=== PATIENT | female | born 1985 | race African-American/Black ===

== ENCOUNTER 2016-12-08 23:17 | Emergency (ER) | payer OTHER ==
[~2016-12-08 23:17] MED LIST: AMOXICILLIN500 MG PO; ANTIVERT 25MG #1 PAC PO; BACTRIM DS 8001 TAB PO; BENTYL20 M1 PO; MOTRIN 800MG T800 MG PO; ZOFRAN4 M2 SL
--- NOTE | 2016-12-08 23:55 | ED AMS/SEIZURE/WEAK/DIZZY ---
History of Present Illness General Chief Complaint: General Adult Stated Complaint: "PER PT DIZZY SPELLS" Source: patient, old records Exam Limitations: no limitations Vital Signs & Intake/Output Vital Signs & Intake/Output Vital Signs Date Time Temp Pulse Resp B/P Pulse O2 O2 Flow FiO2 Ox Delivery Rate 12/09 0118 97.0 79 18 126/76 96 12/08 2326 98.6 80 20 124/84 99 Allergies Coded Allergies: NO KNOWN ALLERGIES (07/10/16) Reconcile Medications Butalb/Acetaminophen/Caffeine (Fioricet 50-300-40 MG Capsule) 50 MG-300 MG-40 MG CAPSULE 1 TAB PO TID PRN MIGRAINE Dicyclomine HCl (Bentyl) 20 MG TABLET 1 TAB PO 4 TIMES/DAY ABDOMINAL PAIN Meclizine HCl 25 MG TABLET 1 TAB PO TIDPRN PRN VERTIGO Ondansetron HCl (Zofran) 4 MG TABLET 1 ODT SL TID PRN NAUSEA Scopolamine Hydrobromide (Transderm-Scop) 1.5MG/3DAY PATCH.TD.3 1 PAT TOP Q3D VERTIGO apply to the hairless area behind 1 ear at least 4 hours before effect is required; reapply every 3 days as needed Triage Note: PER PT DIZZY SPEELS ON AND OFF FOR FEW MONTHS. PER PT SEEN HERE 6 MONTHS AGO FOR A MISCARRIAGE NO MENSES SINCE, ONLY SPOTTING, UNKNOWN PERIOD, PER PT NODULES ON LUNGS FROM CT YESTERDAY, COUGHING Triage Nurses Notes Reviewed? yes Onset: Gradual Duration: constant Timing: recent history Severity: moderate Severity Numbers: 5 : No Patient currently breastfeeds: No HPI: Patient is a 31-year-old female with a past medical history of asthma pulmonary nodules migraine headaches and in June a miscarriage in which patient states that since the miscarriage in which she had a D&C performed by her TRANSPORTATION SECURITY SCREENER afterwards she has been complaining of intermittent vaginal spotting however no excessive vaginal bleeding has occurred. Patient also has been complaining of worsening intermittent migraine headaches and chronic photophobia and dizziness episodes. Patient denies any acute onset or thunderclap headache or worse headache of life. Patient denies any fever but does have chills chronically Denies any dysuria hematuria or vaginal discharge, nausea vomiting abdominal pain back pain chest pain and arm pain jaw pain shortness of breath hemoptysis or cough. Patient has been following her pulmonary nodules in which a CT scan was performed this week showing increased frequency of pulmonary nodules in which follow-up appointment with Dr. Harley is Friday Patient has been taking ibuprofen for her headaches patient associates his symptoms of lightheaded sensation and room spinning sensation Patient is able tolerate by mouth with no change in symptoms Patient also states that since her miscarriage she has not had a "full" REGULAR menses. (MGAAN AZAR) Past History Travel History Traveled to [place] past 21 day No Medical History Any Pertinent Medical History? 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 No (MAGAN AZAR) Review of Systems Review of Systems Constitutional: Reports: see HPI, chills. EENTM: Reports: see HPI. Denies: blurred vision. Respiratory: Denies: cough, short of breath. Cardiovascular: Reports: no symptoms. GI: Reports: see HPI. Genitourinary: Reports: see HPI. Musculoskeletal: Reports: no symptoms. Skin: Reports: no symptoms. Neurological/Psychological: Reports: see HPI, headache. Hematologic/Endocrine: Reports: no symptoms. Immunologic/Allergic: Reports: no symptoms. All Other Systems: Reviewed and Negative (MAGAN AZAR) Physical Exam Physical Exam General Appearance: no apparent distress, alert, comfortable Comments: Well-developed well-nourished person in no acute distress HEENT: Normal EENT exam, extraocular motion intact, no nystagmus. Pupils equally round and reactive to light and accommodation. Nose is atraumatic. External auditory canal and Tympanic membranes clear. Pharynx normal. No swelling or edema. Neck: Supple, no lymphadenopathy, normal range of motion without pain or tenderness Back: Nontender, no CVA tenderness. Cardiovascular: Regular rate and rhythms no murmurs rubs or gallops, normal JVP Respiratory: Chest nontender. No respiratory distress.breath sounds clear to auscultation bilaterally Abdomen: Soft, nontender nondistended, no appreciable organomegaly. Normal bowel sounds. No ascites Extremity: No edema, no calf tenderness to palpation, normal and equal pulses. Neuro: Alert oriented x3, motor sensory normal, cranial nerves II through XII grossly intact. Skin: No appreciable rash on exposed skin, skin is warm and dry. Psych: Mood and affect is normal, memory and judgment is normal. Core Measures ACS in differential dx? No CVA/TIA Diagnosis: No Severe Sepsis Present: No Septic Shock Present: No (BARI BANUELOS,MAGAN) Progress Differential Diagnosis: arrythmia, anemia, benign positional vertigo, CVA/stroke , dehydration, drug intoxication, encephalitis, electrolyte imbalance, GI bleed, hypoglycemia, hypoxia, intracranial Hem., intracranial mass/tumor, labrynthitis, meningitis, Meniere's disease, migraine [place], multiple sclerosis, pneumonia, postural hypotension, presyncope, post-traumatic vertigo, sepsis, seizure disorder, subarachnoid Hem., UTI/pyelo, vertebrobasilar insuff Plan of Care: Orders Procedure Date/time Status COMPREHENSIVE METABOLIC PANEL 12/08 235 Complete CBC WITHOUT DIFFERENTIAL 12/08 2357 Complete URINE 12/08 2326 Complete URINALYSIS 12/08 2326 Complete Laboratory Tests 12/09/16 0055: Anion Gap 10, Estimated GFR > 60, BUN/Creatinine Ratio 20.0, Glucose 96, Calcium 9.3, Total Bilirubin 0.3, AST 32, ALT 47, Alkaline Phosphatase 58, Total Protein 7.0, Albumin 3.8, Globulin 3.2, Albumin/Globulin Ratio 1.2, CBC w Diff NO MAN DIFF REQ, RBC 4.23, MCV 84.8, MCH 28.4, RDW 13.7, MPV 8.6, Gran % 66.6, Lymphocytes % 24.2, Monocytes % 5.3, Eosinophils % 2.2, Basophils % 1.7, Absolute Granulocytes 5.6, Absolute Lymphocytes 2.0, Absolute Monocytes 0.4, Absolute Eosinophils 0.2, Absolute Basophils 0.1, PUBS MCHC 33.5 12/08/16 2332: Urinalysis LIGHT H, Urine Color YEL, Urine Clarity CLEAR, Urine pH 6.5, Ur Specific [place] 1.025, Urine Protein TRACE H, Urine Ketones NEG, Urine Nitrite NEG, Urine Bilirubin NEG, Urine Urobilinogen 0.2, Ur Leukocyte Esterase NEG, Ur Microscopic SEDIMENT EXAMINED, Urine RBC 1-3, Urine WBC 1-3 H, Ur Epithelial Cells FEW, Urine Mucus FEW, Urine Hemoglobin NEG, Urine Glucose NEG, Urine Test NEGATIVE Patient currently is in no apparent distress Patient's vital signs were unremarkable patient was normotensive Patient has nontender abdomen Patient has concerns of migraine and dizziness and room spinning sensation Patient has unremarkable acute physical exam findings Patient at this time due to his her present illness and exam findings has no concerns of subarachnoid hemorrhage Discussed hand off with Dr. GUERRERO with blood work currently is pending (MAGAN AZAR) Initial ED EKG: none Hand-Off Endorsed To: RAFAEL GUERRERO MD Endorsed Time: 54 Pending: labs (MAGAN AZAR) Departure Departure Disposition: HOME OR SELF CARE Condition: Stable Clinical Impression Primary Impression: Migraine Secondary Impressions: Positional vertigo, Vaginal spotting Referrals: PATIENT HAS NO PRIMARY CARE DR (PCP/Family) Additional Instructions: As discussed continue [id number] ibuprofen for headaches and begin the prescription of Fioricet for future headache BREAKthrough relief. Begin the prescription a scopolamine patch and meclizine for room spinning sensation. Begin drinking plenty of water for hydration. Follow up this week with her OB/ FRONT END SOFTWARE DEVELOPER for your symptoms and you have been given a list of primary care doctors to call, please call on Friday to establish a doctor. If symptoms worsen return to emergency room. Departure Forms: Customer Survey General Discharge Information Prescriptions: Current Visit Scripts Butalb/Acetaminophen/Caffeine (Fioricet 50-300-40 MG Capsule) 1 TAB PO TID PRN MIGRAINE #15 Scopolamine Hydrobromide (Transderm-Scop) 1 PAT TOP Q3D #4 PAT apply to the hairless area behind 1 ear at least 4 hours before effect is required; reapply every 3 days as needed Meclizine HCl 1 TAB PO TIDPRN PRN VERTIGO #15 TAB (MAGAN AZAR) PA/MANAGER BANK Co-Sign Statement Statement: ED Attending supervision documentation- [X] I saw and evaluated the patient. I have also reviewed all the pertinent lab results and diagnostic results. I agree with the findings and the plan of care as documented in the PA's/MANAGER BANK's documentation. [X] I have reviewed the ED Record and agree with the PA's/MANAGER BANK's documentation. [] Additions or exceptions (if any) to the PAs/MANAGER BANK's note and plan are summarized below: [] (RAFAEL GUERRERO MD)
[2016-12-09] MEDS ORDERED: MECLIZINE HCL25 MG PO (00:24)
[2016-12-09] MEDS ORDERED: FIORICET 50-301 EACH PO (00:24)
[2016-12-09] MEDS ORDERED: TRANSDERM-SCOP1 EACH TOP (00:24)
[2016-12-09 01:06] LABS: ABSOLUTE BASOPHIL COUNT 0.1 /CUMM (0.0-0.2); ABSOLUTE EOSINOPHIL COUNT 0.2 /CUMM (0.0-0.7); ABSOLUTE GRANULOCYTE CT 5.6 /CUMM (1.4-6.5); ABSOLUTE MONOCYTE COUNT 0.4 /CUMM (0.10-0.60); BASOPHIL % 1.7 % (0.0-2.0); EOSINOPHIL % 2.2 % (0-5); GRANULOCYTE % 66.6 % (42.2-75.2); HEMATOCRIT 35.8 % (37-47); MEAN CORPUSCULAR HGB 28.4 PG (27.0-31.0); MEAN CORPUSCULAR HGB CONC 33.5 G/DL (33.0-37.0); MEAN CORPUSCULAR VOLUME 84.8 FL (81.0-99.0); MEAN PLATELET VOLUME 8.6 FL (7.4-10.4); PLATELET COUNT 260 /CUMM (130-400); RBC DISTRIBUTION WIDTH 13.7 % (11.5-14.5); RED BLOOD CELL CT 4.23 /CUMM (4.20-5.40); WHITE BLOOD CELL COUNT 8.4 /CUMM (4.8-10.8)
[2016-12-09 01:18] VITALS: BP 126/76
[2016-12-09] MEDS ORDERED: IBUPROFEN600 M1 PO (01:51)
== END 2016-12-09 02:13 ==
LOC: ERH 23:17
PROVIDERS: Physician Assistant
DX: G43.909 Migraine, unspecified, not intractable, without status migrainosus (principal); H81.10 Benign paroxysmal vertigo, unspecified ear; N93.9 Abnormal uterine and vaginal bleeding, unspecified
CPT/HCPCS: 81001; 81025

== ENCOUNTER 2017-12-30 23:47 | Emergency (ER) | payer OTHER ==
[~2017-12-30 23:47] MED LIST changes: +FIORICET 50-301 EACH PO; +IBUPROFEN600 M1 PO; +MECLIZINE HCL25 MG PO; +TRANSDERM-SCOP1 EACH TOP
[2017-12-31 00:19] VITALS: BP 117/80
--- NOTE | 2017-12-31 00:24 | ED UPPER/LOWER EXTREMITY COMPL ---
History of Present Illness General Chief Complaint: Foot or Ankle Injury Stated Complaint: " RT PINKY TOE IS KILLING ME" X'S 4 MTS PER PT Source: patient Exam Limitations: no limitations Vital Signs & Intake/Output Vital Signs & Intake/Output Vital Signs Date Time Temp Pulse Resp B/P B/P Pulse O2 O2 Flow FiO2 Mean Ox Delivery Rate 12/31 0019 81 20 117/80 100 Room Air Allergies Coded Allergies: NO KNOWN ALLERGIES (07/10/16) Reconcile Medications Albuterol Sulfate (Proair Hfa) 90 MCG HFA.AER.AD 2 PUF INH Q4-6 PRN PRN ASTHMA (Reported) Ibuprofen 600 MG TABLET 1 TAB PO TID PRN PAIN with food Lotrisone (Lotrisone Cream) 1 %-0.05 % CREAM..G. 1 KADY TOP TID yeast infection apply to affected area(s) x 10 days Nystatin 500 MILLION UNIT POWDER.EA. 1 KADY TOP TID YEAST INFECTION X 10 DAYS Triage Note: PER PT FUNGUS TO RT FOOT X 4 MONTHS MANY MEDS GIVEN BY 2 DIFFERENT DRS STILL PAINFUL AND BURNING. ALSO INCREASED URINATION X 3 DAYS LMP END November Triage Nurses Notes Reviewed? yes : No Patient currently breastfeeds: No HPI: 32 yo woman presents with 4 months of burning pain between 4th and 5th toes, despite using several different creams. She notes also pain in her 5th toe that extends into her foot. She notes also that for the past 3 days she has had increased urination. "I pee 20 times a day... it manzano a bit... I think I have a UTI." She notes no fever, flank pain, nausea, vomiting, diarrhea, redness in her toe, toe swelling. She is otherwise well. Past History Travel History Traveled to [place] past 21 day No Medical History Any Pertinent Medical History? 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 No Review of Systems Review of Systems Constitutional: Reports: no symptoms. EENTM: Reports: no symptoms. Respiratory: Reports: no symptoms. Cardiovascular: Reports: no symptoms. Gastrointestinal/Abdominal: Reports: no symptoms. Genitourinary: Reports: no symptoms. Musculoskeletal: Reports: no symptoms. Skin: Reports: no symptoms. Neurological/Psychological: Reports: no symptoms. Hematologic/Endocrine: Reports: no symptoms. Immunological: Reports: no symptoms. All Other Systems: Reviewed and Negative Physical Exam Physical Exam General Appearance: well developed/nourished, mild distress Head: atraumatic Eyes: Bilateral: normal appearance. Ears, Nose, Throat: normal pharynx, normal ENT inspection Neck: normal inspection, supple, full range of motion Cardiovascular/Respiratory: normal breath sounds, normal peripheral pulses Foot Right: skin peeling between 4th and 5th digits, consistent with yeast. mild tenderness at 5th digit to papation, without swelling or deformity. no streaking , erythema, joint swelling. Progress Differential Diagnosis: sprain, tendon injury, yeast infection, uti vs other. Plan of Care: Orders Procedure Date/time Status URINALYSIS 12/31 23 Complete URINE 12/31 1 Complete Laboratory Tests 12/31/175: Urine Test NEGATIVE 12/31/17 0025: Urinalysis MOD H, Urine Color YEL, Urine Clarity CLEAR, Urine pH 8.5 H, Ur Specific [place] 1.015, Urine Protein TRACE H, Urine Ketones TRACE H, Urine Nitrite NEG, Urine Bilirubin NEG, Urine Urobilinogen 0.2, Ur Leukocyte Esterase NEG, Ur Microscopic SEDIMENT EXAMINED, Urine WBC 1-3 H, Ur Epithelial Cells MOD H, Urine Bacteria FEW H, Urine Mucus MOD H, Urine Hemoglobin NEG, Urine Glucose NEG Diagnostic Imaging: Viewed by Me: Radiology Read. Discussed w/RAD: Radiology Read. Radiology Impression: PATIENT: JURGEN ADAMS PRESENT AGE: 32 PATIENT ACCOUNT NO: [id number] : 85 LOCATION: [facility] ORDERING PHYSICIAN: Lincoln Moss MD SERVICE DATE: 12/31/17 EXAM TYPE: RAD - XRY-TOES, RIGHT EXAMINATION: XR TOES, RIGHT CLINICAL INFORMATION: Fifth toe pain. COMPARISON: None TECHNIQUE: 3 views of the right toes were obtained. FINDINGS: There are no fractures or dislocations. No bone, joint or soft tissue abnormality is demonstrated. IMPRESSION: Unremarkable examination. DICTATED BY: Kirill Canchola MD DATE/TIME DICTATED:12/31/17104 FENDER MECHANIC:AFSANEH DATE/TIME TRANSCRIBED:12/31/17104 CONFIDENTIAL, DO NOT COPY WITHOUT APPROPRIATE AUTHORIZATION. <Electronically signed in Other Vendor System> SIGNED BY: Kirill Canchola MD 12/31/17108 Departure Departure Disposition: HOME OR SELF CARE Condition: Stable Clinical Impression Primary Impression: Fungal skin infection Secondary Impressions: Sprain of toe, fifth, right Referrals: Patient Has No Primary Care Dr (PCP/Family) Departure Forms: Customer Survey General Discharge Information Prescriptions: Current Visit Scripts Lotrisone (Lotrisone Cream) 1 KADY TOP TID #15 GM Ref 1 apply to affected area(s) x 10 days Nystatin 1 KADY TOP TID #1 TUBE X 10 DAYS Ibuprofen 1 TAB PO TID PRN PAIN #30 TAB with food Comments discussed results at length... pt safe for discharge... pt referred to podiatry. gave rx for aggressive antifungal regimen as well as ibuprofen 800mg. close follow up advised
[2017-12-31] MEDS ORDERED: PROAIR HFA8.5 GM INH (01:04)
--- NOTE | 2017-12-31 01:09 | RADIOLOGY REPORT ---
EXAMINATION: XR TOES, RIGHT CLINICAL INFORMATION: Fifth toe pain. COMPARISON: None TECHNIQUE: 3 views of the right toes were obtained. FINDINGS: There are no fractures or dislocations. No bone, joint or soft tissue abnormality is demonstrated. IMPRESSION: Unremarkable examination.
[2017-12-31] MEDS ORDERED: LOTRISONE CREAM15 G1 TOP (01:13)
[2017-12-31] MEDS ORDERED: NYSTATIN1 EAC7 TOP (01:13)
[2017-12-31] MEDS ORDERED: IBUPROFEN600 M1 PO (01:13)
== END 2017-12-31 01:36 ==
LOC: ERH 23:47
DX: S93.504A Unspecified sprain of right lesser toe(s), initial encounter (principal); B35.3 Tinea pedis; X58.XXXA Exposure to other specified factors, initial encounter; Y92.9 Unspecified place or not applicable; Y93.9 Activity, unspecified
CPT/HCPCS: 73660-RT; 81001; 81025

== ENCOUNTER → 2018-03-17 | Day surgery (SDC) | payer OTHER ==
--- NOTE | 2018-03-15 16:34 | History & Physical Pre-Op ---
General Information and HPI History of Present Illness: Catherine is a 32-year-old female with a long-standing and worsening complaint of painful hammertoes involving the right foot. The patient has undergone an extended course of conservative care, including shoe gear and activity modification, rest, immobilization and courses of NSAIDs. None of this is yielded her any significant relief. The patient presents today for preoperative surgical consultation. Allergies/Medications Allergies: Coded Allergies: NO KNOWN ALLERGIES (07/10/16) Home Med list Albuterol Sulfate (Proair Hfa) 90 MCG HFA.AER.AD 2 PUF INH Q4-6 PRN PRN ASTHMA (Reported) Ibuprofen 600 MG TABLET 1 TAB PO TID PRN PAIN with food Lotrisone (Lotrisone Cream) 1 %-0.05 % CREAM..G. 1 KADY TOP TID yeast infection apply to affected area(s) x 10 days Nystatin 500 MILLION UNIT POWDER.EA. 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 Heart sounds rate and rhythm regular. Lower extremity physical exam demonstrates intact pedal pulses bilaterally. Pulses dorsalis pedis and posterior tibial arteries are palpable bilaterally. Patient without any sensory motor deficits. Deep tendon reflexes grossly intact. Patient noted to have pain with palpation and dorsal aspect of the second fourth and fifth digits right foot. Assessment/Plan Assessment/Plan: Painful hammertoes right foot. According conservative options was held the patient at bedside and the patient elected to go forward with surgery despite the risks. As Ranked By This Provider Problem List: 1. Other hammer toe(s) (acquired), right foot Attending MD Review Statement Attending Statement Attending MD Statement: examined this patient
[~2018-03-17] VITALS: Ht 160 cm; Wt 99.8 kg
[~2018-03-17] MED LIST changes: +LOTRISONE CREAM15 G1 TOP; +NYSTATIN1 EAC7 TOP; +PROAIR HFA8.5 GM INH
--- NOTE | 2018-03-17 13:57 | Operative Report ---
Operative/Inv Procedure Report Surgery Date: 03/17/18 Name of Procedure: 1 arthroplasty second toe right foot 2 arthroplasty fourth toe right foot 3 arthroplasty fifth toe right foot Pre-Operative Diagnosis: 1 hammertoe second toe right foot 2 hammertoe fourth toe right foot 3 hammertoe fifth toe right foot Post-Operative Diagnosis: The same Estimated Blood Loss: scant Surgeon/Grocery Supervisor: Rafael NASCIMENTO,Gabe Centeno DPM Anesthesia: moderate sedation, block Operative/Procedure Note Note: After obtaining informed consent the patient was brought to the operating room and placed on the operating table in the supine position. The patient isn't securely fastened to the operating table utilizing safety belt. After administration of IV sedation, 10 mL of 0.5% Marcaine plain was infiltrated about the patient's right ankle. Well-padded ankle tourniquet was placed about the patient's right lower extremity. The right foot and ankle within scrubbed prepped and draped in usual aseptic manner. 2 g of Ancef were delivered intravenously times one dose. The right lower extremity was then elevated to examine to limb, which point the ankle tourniquet was inflated 250 mmHg. Attention directed to the dorsal aspect of the second fourth and fifth digits. Transversely oriented semielliptical incisions centered over the proximal interphalangeal joints were incised with 15 blades. The ellipses of skin were freed and passed from the operative field. Transverse tenotomies were then performed exposing the heads of the second fourth and fifth proximal phalanges. These were then removed with a sagittal bone saw. The extensor tendons were reapproximated 4-0 Vicryl and the skin edges reapproximated 4-0 nylon. The incisions were dressed with Xeroform, 4 x 4's Kerlix and an Devan wrap. The patient was noted to tolerate both procedure and anesthesia well and the patient was transported from the operating room to recovery with vital signs stable best assess intact all digits right foot.
== END ==
LOC: STS 03:07
DX: M20.41 Other hammer toe(s) (acquired), right foot (principal)
CPT/HCPCS: 81025; J0690; J1885; J2001; J2250